=== PATIENT | male | born 1995 ===

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

== ENCOUNTER 2017-10-28 21:28 | Emergency (ER) | payer SELFPAY ==
--- NOTE | 2017-10-28 22:55 | ED PDOC ---
HPI: CCC, URI, Sore Throat Time Seen by Provider: 10/28/17 22:13 Chief Complaint (Nursing): Headache Chief Complaint (Provider): fever History Per: Patient, [employer] (amara [id number]) Associated Symptoms: Fever, Sore Throat, Cough, Nasal Congestion Additional Complaint(s): 22 y/o male presents for evaluation of fever x 1 day. Associated nasal congestion, sore throat, nonproductive cough since onset of fever, and headache x 2 days. Denies neck stiffness, nausea/vomiting, vision changes, chest pain, shortness of breath, palpitations, abdominal pain, changes in bowel movements, urinary symptoms, recent travel, sick contacts. Last dose ibuprofen taken this afternoon. Past Medical History Reviewed: Historical Data, Nursing Documentation, Vital Signs Vital Signs: Last Vital Signs Temp 98.9 F 10/29/17 00:20 Pulse 82 10/29/17 00:58 Resp 18 10/29/17 00:58 BP 102/55 L 10/29/17 00:58 Pulse Ox 98 10/29/17 00:58 - Medical History PMH: No Chronic Diseases - Surgical History Surgical History: No Surg Hx - Family History Family History: States: Unknown Family Hx - Living Arrangements Living Arrangements: With Family - Home Medications Home Medications: Ambulatory Orders Medication Instructions Recorded Amoxicillin/Potassium Clav 1 each PO BID #14 tablet 02/18/16 [Amox-Clav 875-125 mg Tablet] Docusate [Colace] 100 mg PO BID #20 cap 02/18/16 Polyethylene Glycol 3350 [Miralax] 1 packet PO DAILY #10 packet 02/18/16 Triamcinolone Acetonide [Nasacort 55 mcg NS DAILY #1 unit 02/18/16 Allergy 24Hr] Fluticasone Nasal [Flonase] 1 actuation NS BID #1 bottle 10/29/17 Oseltamivir [Tamiflu] 75 mg PO BID #9 cap 10/29/17 Promethazine DM [Phenergan DM 5 ml PO Q6 PRN #1 bottle 10/29/17 Syrup] - Allergies Allergies/Adverse Reactions: Allergies Allergy/AdvReac Type Severity Reaction Status Date / Time No Known Allergies Allergy Verified 10/28/17 21:53 Review of Systems ROS Statement: Except As Marked, All Systems Reviewed And Found Negative Constitutional: Positive for: Fever ENT: Positive for: Nose Congestion, Throat Pain Respiratory: Positive for: Cough Neurological: Positive for: Headache Physical Exam - Reviewed Nursing Documentation Reviewed: Yes Vital Signs Reviewed: Yes - Physical Exam Appears: Positive for: Well, Non-toxic, No Acute Distress Head Exam: Positive for: ATRAUMATIC, NORMAL INSPECTION, NORMOCEPHALIC Skin: Positive for: Normal Color Eye Exam: Positive for: Normal appearance ENT: Positive for: Pharyngeal Erythema Cardiovascular/Chest: Positive for: Regular Rate, Rhythm Respiratory: Positive for: Normal Breath Sounds Gastrointestinal/Abdominal: Positive for: Normal Exam Back: Positive for: Normal Inspection Extremity: Positive for: Normal ROM Neurologic/Psych: Positive for: Alert, Oriented (x3) - ECG O2 Sat by Pulse Oximetry: 97 - Radiology X-Ray: Viewed By Md X-Ray Interpretation: No Acute Disease - Progress ED Course And Treament: flu, strep, chest xray, tylenol PO Patient educated on findings, discharged with rx Tamiflu (dose given in ED), flonase, promethazine-DM Advised follow up PMD 2-3 days Fluids. Rest. Return precautions given Disposition - Clinical Impression Clinical Impression: Influenza A - Patient ED Disposition Is Patient to be Admitted: No Counseled Patient/Family Regarding: Studies Performed, Diagnosis, Need For Followup, Rx Given - Disposition Disposition: Routine/Home Disposition Time: 00:47 Condition: IMPROVED Prescriptions: Fluticasone Nasal [Flonase] 1 actuation NS BID #1 bottle Oseltamivir [Tamiflu] 75 mg PO BID #9 cap Promethazine DM [Phenergan DM Syrup] 5 ml PO Q6 PRN #1 bottle PRN Reason: Cough Instructions: Flu Print Language: YORUBA
[2017-10-29 00:58] VITALS: TEMP 98.9
[2017-10-29 00:59] VITALS: BP 102/55; PULSE 82; RESP 18
[2017-10-29 04:53] VITALS: O2SAT 97
--- NOTE | 2017-10-29 10:20 | RAD ---
HISTORY: COMPARISON: CT chest without from 08/17/2016 TECHNIQUE: Chest PA and lateral FINDINGS: LINES AND TUBES: None. LUNG AND PLEURA: The lungs are well inflated and clear. No pleural effusion or pneumothorax. HEART AND MEDIASTINUM: The heart is not enlarged. The hilar and mediastinal contours are within normal limits. SKELETAL STRUCTURES: The bony structures are within normal limits for the patient's age. VISUALIZED UPPER ABDOMEN: Normal. OTHER FINDINGS: None. IMPRESSION: No active pulmonary disease.
== END 2017-10-29 01:17 | disposition home or self-care (01) ==
LOC: H.ER 21:28
DX: J09.X2 Influenza due to identified novel influenza A virus with other respiratory manifestations (principal); R51 Headache